=== PATIENT | male | born 1945 | race Two or more races ===

== ENCOUNTER 2017-09-07 07:57 | Emergency (ER) | payer OTHER, MEDICARE ==
[~2017-09-07] VITALS: Ht 162.6 cm; Wt 70.3 kg
[~2017-09-07 07:57] MED LIST: PANT1INJ3 PO; SUCR1SUS10 PO
[2017-09-07 08:32] VITALS: BP 140/97
[2017-09-07] MEDS ORDERED: cefTRIAXone SOD 1,000 MG VL IM ONE (08:45)
[2017-09-07] MEDS ORDERED: KETOROLAC TROMETH 60MG/2ML VIAL IM ONE (08:45)
== END 2017-09-07 09:23 | disposition home or self-care (01) ==
LOC: ER 07:57
DX: L03.211 Cellulitis of face (principal); Z79.899 Other long term (current) drug therapy; Z87.891 Personal history of nicotine dependence
CPT/HCPCS: 96372; 99284; J0696; J1885

== ENCOUNTER 2017-09-10 16:34 | Emergency (ER) | payer OTHER, MEDICARE ==
[~2017-09-10] VITALS: Ht 162.6 cm; Wt 70.3 kg
[2017-09-10 17:01] VITALS: BP 167/100
== END 2017-09-10 17:49 | disposition home or self-care (01) ==
LOC: ER 16:41
DX: L03.211 Cellulitis of face (principal)

== ENCOUNTER 2017-09-14 09:35 | Emergency (ER) | payer OTHER, MEDICARE ==
[~2017-09-14] VITALS: Ht 162.6 cm; Wt 68.0 kg
[2017-09-14 13:59] VITALS: BP 150/95
== END 2017-09-14 13:58 | disposition home or self-care (01) ==
LOC: ER 09:35
DX: S01.80XD Unspecified open wound of other part of head, subsequent encounter (principal); X58.XXXD Exposure to other specified factors, subsequent encounter